=== PATIENT | female | born 1945 | race Caucasian/White ===

== ENCOUNTER 2022-01-03 12:52 | Inpatient (IN) | payer MEDICARE, BC ==
[~2022-01-03] VITALS: Ht 165.1 cm; Wt 77.6 kg
[~2022-01-03 12:52] MED LIST: CHOL200074 PO; OMEG300C3 PO
--- NOTE | 2022-01-03 12:54 | NUR ---
BIB [facility] FROM HOME,C/O RIGHT HIP/BACK PAIN,TRIPPED OVER HER DOG IN HER BACKYARD,DENIES ANY HEAD INJURY. PT A&O X4. BREATHINS IS EVEN AND UNLABORED. DR RHODES AT BEDSIDE.
[2022-01-03] MEDS ORDERED: ONDANSETRON HCL/PF 4 MG/2 ML VIAL ONE (13:28)
[2022-01-03] MEDS ORDERED: MORPHINE SULFATE INJ 4 MG/ML DISP.SYRIN ONE (13:28)
[2022-01-03] MEDS ORDERED: MORPHINE SULFATE INJ 2 MG/ML DISP.SYRIN IV ONE (13:30)
[2022-01-03] MEDS ORDERED: ONDANSETRON HCL/PF - ER 4 MG/2 ML VIAL IV ONE (13:30)
--- NOTE | 2022-01-03 14:52 | NUR ---
CALLED NURSING SUP REGARDING PT BED
[2022-01-03 15:10] LABS: BASOPHILS # (AUTO) 0.1 K/uL (0.0-0.2); BASOPHILS % (AUTO) 0.3 % (0.0-2.0); EOSINOPHILS % (AUTO) 0.6 % (0.0-6.0); HEMATOCRIT 36 % (33-45); HEMOGLOBIN 11.7 g/dL (11.5-14.8); LYMPHOCYTES # (AUTO) 1.4 K/uL (0.8-4.8); LYMPHOCYTES % (AUTO) 7.9 % (20.0-44.0); MEAN CORPUSCULAR HGB CONC 33 g/dl (31.0-36.0); MEAN CORPUSCULAR VOLUME 99 fL (82-100); MONOCYTES # (AUTO) 0.6 K/uL (0.1-1.30); MONOCYTES % (AUTO) 3.4 % (2.0-12.0); NEUTROPHILS # (AUTO) 16.1 K/uL (1.8-8.9); NEUTROPHILS % (AUTO) 87.8 % (43.0-81.0); PLATELET COUNT (AUTO) 235 K/uL (150-450); RED BLOOD CELL COUNT(AUTO) 3.63 MIL/uL (4.0-5.2); WHITE BLOOD COUNT (AUTO) 18.3 K/uL (4.3-11.0)
[2022-01-03 15:23] LABS: CALCIUM, SERUM 8.9 mg/dL (8.5-10.1); CREATININE 0.6 mg/dL (0.6-1.3); POTASSIUM 3.6 mmol/L (3.5-5.1)
--- NOTE | 2022-01-03 16:13 | NUR ---
BED GIVEN [id number]
--- NOTE | 2022-01-03 16:21 | NUR ---
REPORT GIVEN TO KWASI FOR KRISTAN
[2022-01-03] MEDS ORDERED: MAG HYDROX/AL HYDROX/SIMETH 30 ML UDC PO PRN (16:30)
[2022-01-03] MEDS ORDERED: HYDROCODONE/APAP 5/325MG TABLET PO PRN (16:30)
[2022-01-03] MEDS ORDERED: ONDANSETRON HCL/PF 4 MG/2 ML VIAL IVP PRN (16:30)
[2022-01-03] MEDS ORDERED: ACETAMINOPHEN 325 MG TABLET PO PRN (16:30)
--- NOTE | 2022-01-03 16:41 | NUR ---
PT TRANSFERRED TO [facility] SUR[facility]LOOR IN STABLE CONDITION.
[2022-01-03] MEDS ORDERED: Z GUARD REMEDY 4 OZ OINT TP PRN (17:00)
[2022-01-03] MEDS: MORPHINE SULFATE INJ 2 MG/ML DISP.SYRIN IV PRN ×2 (17:27→21:33)
[2022-01-03] MEDS ORDERED: OMEPRAZOLE 20 MG CAPSULE.DR PO SCH (18:30)
--- NOTE | 2022-01-03 18:52 | NUR ---
MS RN NOTE RECEIVED PATIENT FROM ER, TRANSPORTED ON A GURNEY AND ACCOMPANIED BY 2 NURSES. PATIENT TRANSFERRED TO BED AND COMFORT MEASURES PROVIDED. PATIENT IS ALERT AND ORIENTED X 4. PATIENT WITH IV ACCESS ON THE RIGHT AC G 20 ON SALINE LOCK, PATENT AND INTACT. PATIENT COMPLAINS OF PAIN ON THE RIGHT HIP RELATED TO HIP FRACTURE. COMFORT MEASURES PROVIDED. SAFETY MEASURES ENSURED WITH BED AT LOWEST LOCKED POSITION, SIDERAILS RAISED AND BED ALARM ON. CALL LIGHT WITHIN REACH AT ALL TIMES. DR. LUTHER AWARE OF ADMISSION.
--- NOTE | 2022-01-03 18:55 | NUR ---
MS RN NOTE SEEN BY DR. LUTHER
--- NOTE | 2022-01-03 18:55 | NUR ---
MS RN CLOSING NOTE PATIENT IS ALERT AND ORIENTED X 4. PATIENT WITH IV ACCESS ON THE RIGHT AC G 20 ON SALINE LOCK, PATENT AND INTACT. PATIENT COMPLAINS OF PAIN ON THE RIGHT HIP RELATED TO HIP FRACTURE WITH MORPHINE GIVEN FOR PAIN MANAGEMENT. COMFORT MEASURES PROVIDED. SAFETY MEASURES ENSURED WITH BED AT LOWEST LOCKED POSITION, SIDERAILS RAISED AND BED ALARM ON. CALL LIGHT WITHIN REACH AT ALL TIMES. WILL ENDORSE PATIENT FOR CONTINUITY OF CARE.
--- NOTE | 2022-01-03 19:20 | NUR ---
RN NOTE PT AWAKE IN BED, A/OX4. DX R-HIP FX. REPORTS PAIN WHEN SHE MOVES, OTHERWISE, DENIES PAIN AT THIS TIME. DENIES N/V. RESPIRATIONS EVEN/UNLABORED. IV SITE: R-AC #20G INTACT/PATENT/FLUSHES WELL. PT IN NO ACUTE DISTRESS. SAFETY MEASURES IN PLACE. WILL CONT TO MONITOR.
[2022-01-03 20:00] VITALS: BP 121/69
--- NOTE | 2022-01-03 20:00 | NUR ---
RN NOTE ASSISTED WITH BEDPAN TO VOID. PT JERRY WELL WITH MINIMAL PAIN
[2022-01-03] MEDS ORDERED: MAGNESIUM HYDROXIDE 30 ML UDC PO PRN (22:00)
[2022-01-03] MEDS: ZOLPIDEM TARTRATE 5 MG TABLET PO PRN (23:02)
[2022-01-04] MEDS: MORPHINE SULFATE INJ 2 MG/ML DISP.SYRIN IV PRN ×4 (03:07→20:33)
[2022-01-04] MEDS: PANTOPRAZOLE 40 MG TABLET.DR PO SCH (06:37)
[2022-01-04 06:54] LABS: BASOPHILS % (AUTO) 0.2 % (0.0-2.0); EOSINOPHILS % (AUTO) 1.2 % (0.0-6.0); HEMATOCRIT 29 % (33-45); HEMOGLOBIN 9.8 g/dL (11.5-14.8); LYMPHOCYTES # (AUTO) 1.7 K/uL (0.8-4.8); LYMPHOCYTES % (AUTO) 15.2 % (20.0-44.0); MEAN CORPUSCULAR HGB CONC 34 g/dl (31.0-36.0); MEAN CORPUSCULAR VOLUME 98 fL (82-100); MONOCYTES # (AUTO) 0.8 K/uL (0.1-1.30); MONOCYTES % (AUTO) 7.5 % (2.0-12.0); NEUTROPHILS # (AUTO) 8.3 K/uL (1.8-8.9); NEUTROPHILS % (AUTO) 75.9 % (43.0-81.0); PLATELET COUNT (AUTO) 197 K/uL (150-450); RED BLOOD CELL COUNT(AUTO) 2.92 MIL/uL (4.0-5.2); WHITE BLOOD COUNT (AUTO) 10.9 K/uL (4.3-11.0)
[2022-01-04 07:12] LABS: ALBUMIN 3.5 g/dL (3.4-5.0); BILIRUBIN,TOTAL 1.3 mg/dL (0.2-1.0); CALCIUM, SERUM 8.4 mg/dL (8.5-10.1); CREATININE 0.7 mg/dL (0.6-1.3); PHOSPHORUS 3.1 mg/dL (2.5-4.9); POTASSIUM 3.9 mmol/L (3.5-5.1); TOTAL PROTEIN, SERUM 6.6 g/dL (6.4-8.2)
[2022-01-04] MEDS ORDERED: CLOP75TA15 PO (07:39)
[2022-01-04] MEDS ORDERED: ZOLP5TAB8 PO (07:39)
--- NOTE | 2022-01-04 08:03 | NUR ---
MS RN OPENING NOTE Patient in bed, awake. A/O x 4, able to make needs known. On room air, breathing evenly and unlabored. No SOB or s/s of distress noted. IV access on RAC #20, SL intact and patent. Safety precautions in place: bed in low, locked position; siderails up x 2; kaleigh light within reach. Will continue to monitor.
[2022-01-04 08:08] VITALS: BP 116/52
[2022-01-04] MEDS ORDERED: Medication Not On Formulary EA (Omega-3 Fatty Acids (Fish Oil) 300 MG) PO SCH (09:00)
--- NOTE | 2022-01-04 09:38 | NUR ---
RN NOTE Patient complained of pain on her right hip, 8/10, PRN Morphine given. will continue to monitor patient.
[2022-01-04] MEDS: CHOLECALCIFEROL 1,000 UNIT TABLET (VIT D3) PO SCH (09:54)
[2022-01-04 10:18] LABS: THYROID STIMULATING HORMONE 1.078 uIU/mL (0.358-3.74)
[2022-01-04 15:33] VITALS: BP 119/53
--- NOTE | 2022-01-04 16:37 | NUR ---
RN NOTE Patient complained of pain on her right hip, 8/10, PRN Morphine given. will continue to monitor patient.
--- NOTE | 2022-01-04 18:52 | NUR ---
MS RN CLOSING NOTE Patient in bed, resting comfortably. A/O x 4, able to make needs known. No SOB or s/s of distress noted. Spo2 ranging from 91-92%, encouraged to use O2 but patient refuses; breathing is even and unlabored. O2 on standby. IV access on RAC #20, SL intact and patent. All needs attended to. Due meds given. Safety precautions maintained: bed in low, locked position; siderails up x 2; kaleigh light within reach. Will endorse to channel marketing manager nurse for KRISTAN.
--- NOTE | 2022-01-04 19:31 | NUR ---
MS RN OPENING NOTE Patient in bed, resting comfortably. A/O x 4, able to make needs known. No SOB or s/s of distress noted. Spo2 ranging from 91-92%, encouraged to use O2 but patient refuses; breathing is even and unlabored. O2 on standby. IV access on RAC #20, SL intact and patent. All needs attended to. Safety precautions maintained: bed in low, locked position; siderails up x 2; kaleigh light within reach. Will continue to monitor.
[2022-01-04 19:54] VITALS: BP 126/55
--- NOTE | 2022-01-04 20:33 | NUR ---
MS RN NOTES PRN MORPHINE GIVEN FOR 8/10 PAIN ON A NUMERIC PAIN SCALE TOLERATED WELL. ALL NEEDS MET AT THIS TIME WILL CONTINUE TO MONITOR.
[2022-01-04] MEDS: ZOLPIDEM TARTRATE 5 MG TABLET PO PRN (23:34)
--- NOTE | 2022-01-04 23:36 | NUR ---
MS RN NOTES DEZ NAVARRO GIVEN REQUESTED BY PT TOLERATED WELL ALL NEEDS MET AT THIS TIME. WILL CONTINUE TO MONITOR.
[2022-01-05] MEDS: MORPHINE SULFATE INJ 2 MG/ML DISP.SYRIN IV PRN (04:26)
--- NOTE | 2022-01-05 04:29 | NUR ---
MS RN NOTES PRN MORPHINE 2MG GIVEN FOR 8/10 PAIN ON A NUMERIC PAIN SCALE TOLERATED WELL. ALL NEEDS MET AT THIS TIME. WILL CONTINUE TO MONITOR.
[2022-01-05 06:44] LABS: BASOPHILS % (AUTO) 0.3 % (0.0-2.0); HEMATOCRIT 28 % (33-45); HEMOGLOBIN 9.5 g/dL (11.5-14.8); LYMPHOCYTES # (AUTO) 2.1 K/uL (0.8-4.8); LYMPHOCYTES % (AUTO) 15.4 % (20.0-44.0); MEAN CORPUSCULAR HGB CONC 34 g/dl (31.0-36.0); MEAN CORPUSCULAR VOLUME 99 fL (82-100); MONOCYTES # (AUTO) 0.9 K/uL (0.1-1.30); MONOCYTES % (AUTO) 6.5 % (2.0-12.0); NEUTROPHILS # (AUTO) 10.3 K/uL (1.8-8.9); NEUTROPHILS % (AUTO) 76.8 % (43.0-81.0); PLATELET COUNT (AUTO) 198 K/uL (150-450); RED BLOOD CELL COUNT(AUTO) 2.85 MIL/uL (4.0-5.2); WHITE BLOOD COUNT (AUTO) 13.5 K/uL (4.3-11.0)
--- NOTE | 2022-01-05 06:44 | NUR ---
MS RN OPENING NOTE Patient in chair, resting comfortably. A/O x 4, able to make needs known. No SOB or s/s of distress noted. breathing is even and unlabored. O2 on standby. IV access on RAC #20, SL intact and patent. All needs attended to. Safety precautions maintained: bed in low, locked position; siderails up x 2; kaleigh light within reach.will endorse care to day shift nurse.
[2022-01-05] MEDS: PANTOPRAZOLE 40 MG TABLET.DR PO SCH (06:48)
[2022-01-05 07:00] LABS: CALCIUM, SERUM 8.9 mg/dL (8.5-10.1); CREATININE 0.7 mg/dL (0.6-1.3); MAGNESIUM 2.2 mg/dL (1.8-2.4); PHOSPHORUS 3.2 mg/dL (2.5-4.9)
--- NOTE | 2022-01-05 07:30 | NUR ---
RN MS NOTES PT IN BED, AWAKE, ALERT AND ORIENTED, NO COMPLAINT OF PAIN AT THIS TIME, RESPIRATIONS NORMAL, CALL LIGHT WITHIN REACH, NEEDS ATTENDED.
[2022-01-05 08:00] VITALS: BP 126/59
[2022-01-05] MEDS: CHOLECALCIFEROL 1,000 UNIT TABLET (VIT D3) PO SCH (08:29)
[2022-01-05] MEDS ORDERED: ATORVASTATIN 40 MG TABLET PO SCH (09:00)
[2022-01-05] MEDS ORDERED: ASPIRIN 81 MG TAB.CHEW PO SCH (09:00)
[2022-01-05] MEDS ORDERED: MAG30ORA PO (11:37)
[2022-01-05] MEDS ORDERED: ASPI-1169 PO (11:37)
[2022-01-05] MEDS ORDERED: ONDA4VIA23 IVP (11:37)
[2022-01-05] MEDS ORDERED: Hydrocodone/Apap 5/325MG PO (11:37)
[2022-01-05] MEDS ORDERED: PANT40TA49 PO (11:37)
[2022-01-05] MEDS ORDERED: ZOLP5TAB8 PO (11:37)
[2022-01-05 16:00] VITALS: BP 134/66
--- NOTE | 2022-01-05 18:39 | NUR ---
RN MS NOTES PT IN BED, AWAKE, ALERT AND ORIENTED, PAIN MEDS GIVEN ORDERED FOR PAIN MANAGEMENT, NOT IN DISTRESS, ASSISTED TO BEDSIDE COMMODE NEEDED, SEEN BY DR. CALLAHAN, DISCHARGE ORDER GIVEN, DISCHARGE AND MEDICATION INSTRUCTIONS PROVIDED TO PT, VERBALIZED UNDERSTANDING, BELONGINGS ACCOUNTED FOR, REPORT GIVEN TO MAI PEREZ OF [facility], AWAITING AMBULANCE PLAQUE MAKER.
--- NOTE | 2022-01-05 19:30 | NUR ---
MS RN OPENING/DISCHARGE NOTES RECEIVED PATIENT LAYING AWAKE IN BED. A/O X4. PATIENT WITH REGULAR AND UNLABORED BREATHING ON ROOM AIR, TOLERATED WELL. NO SIGNS AND SYMPTOMS OF DISTRESS NOTED AT THIS TIME. NO COMPLAINS OF PAIN OR DISCOMFORT AT THIS TIME. IV ACCESS REMOVED CATHETER INTACT. AMBULANCE PERSONNEL CAME TO TAKE PATIENT. DISCHARGE INSTRUCTIONS AND PAPER WORK GIVEN. PATIENT VERBALIZED UNDERSTANDING.
[2022-01-05 20:00] VITALS: BP 124/42
== END 2022-01-05 19:45 | DRG 536 ==
LOC: ER 12:54 → MED 16:16
PROVIDERS: ADMIT Internal Medicine; ATTEND Registered Nurse
DX: S32.810A Multiple fractures of pelvis with stable disruption of pelvic ring, initial encounter for closed fracture (principal); S32.10XA Unspecified fracture of sacrum, initial encounter for closed fracture; E87.1 Hypo-osmolality and hyponatremia; D72.828 Other elevated white blood cell count; W18.31XA Fall on same level due to stepping on an object, initial encounter; I25.10 Atherosclerotic heart disease of native coronary artery without angina pectoris; Z20.822 Contact with and (suspected) exposure to COVID-19; Y92.007 Garden or yard of unspecified non-institutional (private) residence as the place of occurrence of the external cause; Y93.K1 Activity, walking an animal; Z86.73 Personal history of transient ischemic attack (TIA), and cerebral infarction without residual deficits; Z95.5 Presence of coronary angioplasty implant and graft; I25.2 Old myocardial infarction; Z79.899 Other long term (current) drug therapy
CPT/HCPCS: 36415; 71045-TC; 72192-TC; 73502; 80048-TC; 80053-TC; 80061-TC; 82728-TC; 83540-TC; 83735-TC; 84100-TC; 84439-TC; 84443-TC; 85025-TC; 87081-TC; 93307-TC; 97116-TC; 97530-TC; C9803; G0378; J2270; J2405